=== PATIENT | male | born 1960 | race Caucasian/White ===

== ENCOUNTER 2017-03-27 11:11 | Day surgery (SDC) | payer OTHER ==
[~2017-03-27] VITALS: Ht 177.8 cm; Wt 94.0 kg
--- NOTE | ~2017-03-27 | OR ---
ADMIT: 03/27/2017 RM/LOC: [facility] MR#: [id number] [address] [address] BETTY MOSQUERA [address] [facility] [place] [place] [address] Operative/Delivery Room Report SEX: M AGE: 56 : 1960 SURGERY DATE: 03/27/2017 SURGEON: Joselito Johnson MD PREOPERATIVE DIAGNOSIS: Right posterolateral perianal abscess. POSTOPERATIVE DIAGNOSIS: Right posterolateral perianal abscess. PROCEDURE: 1. Rectal exam under anesthesia. 2. Drainage of right posterolateral perianal abscess. ANESTHESIA: General endotracheal with addition of Marcaine in the wounds. ESTIMATED BLOOD LOSS: Less than 10 mL. DESCRIPTION OF PROCEDURE: After appropriate informed consent was obtained, the patient was brought to the operating room. General endotracheal anesthesia was induced. The patient was placed in supine candy-cane stirrups. His perianal area was prepped and draped sterilely. 0.25% Marcaine plain was injected in the skin and deep tissues around this fluctuant abscess in the right posterolateral aspect of his perianal region. As well as circumferentially, he has an anal block. Anal speculum was introduced. I did not see any internal opening or drainage. I then made a cruciate-type incision over this abscess in the posterolateral right side. I got a copious amount of pus out of this perianal abscess region, perianal abscess. I then unroofed a little bit more of the skin to get a wide open opening so that it would adequately drain out. I controlled any bleeding with cautery. Once I was satisfied with hemostasis, I reinspected the anal canal on the rectum and there again was no internal opening from this abscess. A bulky gauze dressing was applied, held in place with tape and underwear. The patient tolerated the procedure well and was taken to the recovery room in stable condition. Joselito Johnson MD/ mikey JOB #: [id number] CC: Joselito Johnson, Attending Physician Joselito Johnson, Family Physician
--- NOTE | 2017-03-28 09:29 | HP ---
ADMIT: 03/27/2017 RM/LOC: [facility] MR#: [id number] [facility] [address] [place] [id number] BETTY MOSQUERA [address] [place] [address] History and Physical SEX: M AGE: 56 : 1960 DATE OF SERVICE: 03/27/2017 CHIEF COMPLAINT: Betty is a very pleasant, 56-year-old male, who states 3-day history of anal pain. HISTORY OF PRESENT ILLNESS: He states that prior to his initial complaints, he has had about a 3 or 4-day history of a GI flu which resulted in 1 day of nausea with emesis and 3-day history of diarrhea. He has had 1 prior episode of perirectal abscess where he treated with conservative measures and it opened on its own and healed. He then got a colonoscopy shortly afterwards that showed no pertinent findings. This event occurred approximately 2 years ago. The patient states that he has quite a bit of pain, but denies any current nausea, diarrhea, constipation, dark or bloody stools. He has noticed some night sweats, however, he believes it is just from the pain. He feels a bit lightheaded but he believes this is from his lack of appetite recently. PAST MEDICAL HISTORY: Significant for hypertension, cold sores, and GERD. PAST SURGICAL HISTORY: 1. Rotator cuff x2, left shoulder rotator cuff surgery. At that time, he had 9 days postop ileus, please note. 2. Carpal tunnel surgery on right hand. 3. Left big toe surgery. ALLERGIES: MORPHINE AND IV CONTRAST. MEDICATIONS: 1. Ziac. 2. Valtrex. 3. Prilosec. 4. Mobic. FAMILY HISTORY: Noncontributory. SOCIAL HISTORY: The patient is a tobacco user. Smokes about a pack a day and drinks alcohol probably 1 drink per month. Denies any illicit drug use. REVIEW OF SYSTEMS: CONSTITUTIONAL: The patient has noticed some sweats but denies any fevers or chills, please see HPI. The rest of comprehensive 10- point review of systems was performed and all other systems are negative. PHYSICAL EXAMINATION: GENERAL: The patient is in no acute distress. He is alert and oriented. HEENT: Head is normocephalic and atraumatic. EOMS are intact. Conjunctivae free of icterus, erythema, or pallor. Pinnae, free of deformities. Nose, midline. No tracheal deviation. NECK: Supple. SKIN: Negative for jaundice, clubbing, edema, pallor, or cyanosis. LUNGS: Clear to auscultation bilaterally. Normal respiratory effort. ADMIT: 03/27/2017 RM/LOC: [facility] MR#: [id number] [address] [address] BETTY MOSQUERA [id number] [place] [address] History and Physical SEX: M AGE: 56 : 1960 HEART: Distal pulses intact. Regular rate and rhythm. ABDOMEN: Soft, nondistended, and nontender, but some discomfort in the suprapubic region. RECTAL: Swelling and erythema noted at about the 12 to 4 o'clock position, exquisite tenderness. No drainage or discharge. NEURO: Grossly intact. DIAGNOSTIC IMAGING: CT of abdomen and pelvis revealed a perirectal abscess. ASSESSMENT: Perirectal abscess. PLAN: The plan is to have the patient go to the OR today for I and D of this abscess. I discussed the risks, alternatives, benefits, and complications of surgery with the patient to which he is agreement of this plan, had all his questions answered and would like to proceed. He has been having some voiding issues recently due to his symptoms, so I will have a Hutton catheter placed and we will get him back to the OR later today. HI Bethea / Joselito Johnson MD / mikey JOB #: [id number] CC: Joselito Johnson, Attending Physician Joselito Johnson, Family Physician
--- NOTE | 2017-04-01 11:26 | HP ---
ADMIT: 03/27/2017 RM/LOC: [facility] MR#: [id number] [address] [address] EVELINE BETTY Josephine [address] [facility] [place] [address] History and Physical SEX: M AGE: 56 : 1960 Corrected: 03/31/2017 1707 [facility] DATE OF SERVICE: 03/27/2017 ADDENDUM: This is a patient who came down from [place] with complaints of perianal pain. He was seen in the ER and evaluated by Dr. Armando. He was worked up, had a CT scan of the abdomen and pelvis which revealed a right- sided posterolateral perianal abscess. The patient is quite uncomfortable as this has popped up fairly quickly for him. So, he is here to discuss I and D of this abscess. PAST MEDICAL HISTORY: Well outlined in the chart. PSYCHIATRIC: On exam, he has a painful right posterolateral perianal abscess. ASSESSMENT: Perianal abscess. PLAN: I have recommended proceeding with I and D. I have gone through the risks and benefits of this procedure. He understands all this and agrees to proceed. Joselito Johnson MD/ mikey JOB #: [id number] CC: Joselito Johnson, Attending Physician Joselito Johnson, Family Physician Corrected: 03/31/20171704 [facility]
--- NOTE | 2017-04-04 09:05 | ER ---
ADMIT: 03/27/2017 RM/LOC: [facility] MR#: [id number] [address] [address] BETTY MOSQUERA [address] [facility] [place] [address] Emergency Room Report SEX: M AGE: 56 : 1960 DATE: 03/27/2017 TIME: 1111 hours. Please refer to my T-sheet for complete H and P. Briefly, the patient is a 56- year-old, comes in with severe rectal pain. It has been going on 2-3 days now. He is having trouble with even urinating, it hurts so bad. He had something draining in the past, that was a hemorrhoid, never was seen for it. He had a colonoscopy a year ago that he said was okay. PHYSICAL EXAMINATION: VITAL SIGNS: Stable. He is afebrile. HEENT: Grossly normal. ABDOMEN: Soft. Rectal area, he has perirectal pain and fullness. He has pain on exam rectally. There are no major hemorrhoids. EXTREMITIES: No cyanosis, clubbing, or edema. SKIN: No rash. EMERGENCY DEPARTMENT COURSE: We established an IV. I gave him 500 mL normal saline bolus, Zofran 4 IV. We gave him 1 mg morphine, he had a reaction to it, we changed to Dilaudid, gave him 1 mg. Benadryl 25 IV. His CBC came back normal except white count 12.5. Chemistries normal except potassium 3.1. CT scan of his abdomen and pelvis revealed a perirectal abscess deeper than I could see on the rectal exam. At this point, I talked to Dr. Johnson, he will evaluate for admission. ASSESSMENT: Perirectal abscess. PLAN: Admit to the hospital. Jim Armando MD/ mikey JOB #: [id number] CC: Joselito Johnson MD, Attending Physician Joselito Johnson MD, Family Physician
== END 2017-03-27 18:00 | disposition home or self-care (01) ==
LOC: ER 11:11 → SSS 13:45
PROC: 0D9Q7ZZ Drainage of Anus, Via Natural or Artificial Opening (ICD-10-PCS; principal; 2017-03-27)
DX: K61.0 Anal abscess (principal); F17.210 Nicotine dependence, cigarettes, uncomplicated; K21.9 Gastro-esophageal reflux disease without esophagitis; Z88.6 Allergy status to analgesic agent; Z91.041 Radiographic dye allergy status; Z98.890 Other specified postprocedural states